=== PATIENT | male | born 1935 | race Caucasian/White ===

== ENCOUNTER 2017-01-13 08:07 | Day surgery (SDC) | payer MEDICARE, BC ==
[2017-01-13] MEDS ORDERED: LACTATED RINGERS 1,000 ML IV ONE (08:38)
[2017-01-13] MEDS ORDERED: MIDAZOLAM 2 MG/2 ML VIAL IVP ONE (09:06)
[2017-01-13] MEDS ORDERED: fentaNYL 100 MCG/2 ML VIAL IVP ONE (09:06)
[2017-01-13 10:34] VITALS: BP 104/64
== END 2017-01-13 08:08 | disposition home or self-care (01) ==
LOC: SDS 08:07
PROVIDERS: ATTEND Surgery
PROC: 0DJD8ZZ Inspection of Lower Intestinal Tract, Via Natural or Artificial Opening Endoscopic (ICD-10-PCS; principal; 2017-01-13 09:00)
DX: Z12.11 Encounter for screening for malignant neoplasm of colon (principal); R19.5 Other fecal abnormalities; K57.30 Diverticulosis of large intestine without perforation or abscess without bleeding; K64.8 Other hemorrhoids; Z86.010 Personal history of colon polyps; I10 Essential (primary) hypertension; E78.00 Pure hypercholesterolemia, unspecified; Z79.82 Long term (current) use of aspirin; Z88.0 Allergy status to penicillin
CPT/HCPCS: G0105; J7120

== ENCOUNTER 2017-12-19 19:34 | Emergency (ER) | payer MEDICARE, BC ==
[2017-12-19 19:41] VITALS: BP 149/84
[2017-12-19] MEDS: HYDROcod/ACETAM 10 MG/325 MG TABLET PO STA (20:14)
--- NOTE | 2017-12-19 20:54 | ED Physician Documentation ---
PD HPI BACK PAIN - Stated complaint Stated Complaint: BACK PX - Chief complaint Chief Complaint: Back Pain - Additional information Additional information: 82-year-old male presents the emergency department with increasing lower back pain with radiation into his right leg. The patient has a history of chronic back pain and typically experiences radiation into his left leg. The patient had a MRI recently showing multiple bulging disks. It was recommended that the patient have epidural injections but the patient declined this point. The patient has had no acute injury and has had increasing lower back pain over the past several days without relieving factors. The patient denies hematuria, saddle anesthesia, urinary retention, overflow incontinence, bowel issues, fevers or sensory or motor changes. The patient has no history of IV drug use and is not on dialysis. Symptoms are described as moderate. No other associated symptoms Review of Systems Constitutional: denies: Fever, Chills, Myalgias Cardiac: denies: Chest pain / pressure GI: reports: Nausea (The patient has had nausea with the episodes of pain). denies: Abdominal Pain : denies: Dysuria, Incontinent, Hematuria Musculoskeletal: reports: Back pain Neurologic: denies: Generalized weakness, Focal weakness, Numbness, Difficulty speaking, Headache, Head injury Immunocompromised: denies: Chemotherapy PD PAST MEDICAL HISTORY - Past Medical History Past Medical History: Yes Cardiovascular: Hypertension, High cholesterol, Other GI: GERD - Past Surgical History Past Surgical History: No General: Colonoscopy - Present Medications Home Medications: Ambulatory Orders Medication Instructions Recorded Confirmed Aspirin [Aspir 81] 1 tab PO DAILY 02/27/15 01/13/17 Diltiazem HCl [Diltiazem ER] 1 tab PO DAILY 02/27/15 01/13/17 Finasteride 1 tab PO DAILY 02/27/15 01/13/17 Lisinopril 1 tab PO DAILY 02/27/15 01/13/17 Propafenone [Rythmol] 150 mg PO TID 02/27/15 01/13/17 Simvastatin 1 tab PO DAILY 02/27/15 01/13/17 Tamsulosin [Flomax] 0.4 mg PO DAILY 01/13/17 01/13/17 Cyclobenzaprine [Flexeril] 10 mg PO TID PRN #20 tablet 12/19/17 HYDROcod/ACETAM 5/325 [Kistler 5/325] 1 each PO Q6H PRN #15 tablet 12/19/17 - Allergies Allergies/Adverse Reactions: Allergies Allergy/AdvReac Type Severity Reaction Status Date / Time Penicillins AdvReac Unknown Verified 12/19/17 19:40 - Social History Does the pt smoke?: No Smoking Status: Never smoker Does the pt drink ETOH?: No Does the pt have substance abuse?: No - Immunizations Immunizations are current?: Yes - POLST Patient has POLST: No PD ED PE NORMAL - General General: Alert and oriented X 3, No acute distress, Well developed/nourished - HEENT HEENT: Atraumatic, PERRL, EOMI, Ears normal - Cardiac Cardiac: RRR - Respiratory Respiratory: No respiratory distress - Back Back: Other (The patient is tender in the lower lumbar spine on the left side, at the L4, L5 and SI junction. There is no bogginess, crepitus, rash, erythematous changes or signs of abscess or acute infectious process identified on physical exam) - Neuro Neuro: Alert and oriented X 3, Normal speech - Psych Psych: Normal mood Results - Vitals Vitals: Vital Signs - 24 hr 12/19/17 19:38 Temperature 36.2 C L Heart Rate 53 L Respiratory 16 Rate Blood Pressure 149/84 H O2 Saturation 98 Oxygen O2 Source Room air - Labs Labs: Laboratory Tests 12/19/17 20:51 Urine Color YELLOW Urine Clarity CLEAR Urine pH 6.0 Ur Specific [place] 1.025 Urine Protein NEGATIVE Urine Glucose (UA) NEGATIVE Urine Ketones NEGATIVE Urine Occult Blood NEGATIVE Urine Nitrite NEGATIVE Urine Bilirubin NEGATIVE Urine Urobilinogen 0.2 (NORMAL) Ur Leukocyte Esterase NEGATIVE Ur Microscopic Review NOT INDICATED Urine Culture Comments NOT INDICATED - Rads (name of study) X-ray lumbar spine Radiology: Final report received, See rad report (Impression: 1. Moderate degenerative disc disease at L2 through L3 and L4 and L5 with grade 1 spondylolisthesis at L4-L5 no fracture identified) PD MEDICAL DECISION MAKING - ED course ED course: On reevaluation the patient has had some improvement in his symptoms, the patient can stand and ambulate without difficulty. The patient's symptoms seem to represent acute lumbar pain with radiculopathy. There is currently no evidence to suggest kidney stone, cauda equina or epidural abscess which would necessitate further workup in the emergency department. The patient appears appropriate for discharge and ongoing outpatient workup and management. I discussed signs for worsening and recommended returning to the emergency department immediately for worsening or any concerns per - Sepsis Event Vital Signs: Vital Signs - 24 hr 12/19/17 19:38 Temperature 36.2 C L Heart Rate 53 L Respiratory 16 Rate Blood Pressure 149/84 H O2 Saturation 98 Oxygen O2 Source Room air Departure - Departure Disposition: Home, Self Care Clinical Impression: Back pain Qualifiers: Back pain location: low back pain Chronicity: acute Back pain laterality: right Sciatica presence: with sciatica Sciatica laterality: sciatica of right side Qualified Code(s): M54.41 - Lumbago with sciatica, right side Condition: Good Instructions: Lumbar Radiculopathy Follow-Up: Nicki Neff PA-C [Primary Care Provider] - Within 3 Days (Please ask your primary care Physicians funeral assistant to arrange for outpatient physical therapy and possibly an MRI and possibly a referral to pain management) Prescriptions: Cyclobenzaprine [Flexeril] 10 mg PO TID PRN #20 tablet PRN Reason: Spasms HYDROcod/ACETAM 5/325 [Kistler 5/325] 1 each PO Q6H PRN #15 tablet PRN Reason: Pain Comments: Please return to the emergency department for worsening symptoms or any concerns
[2017-12-19 21:05] LABS: BILIRUBIN,URINE NEGATIVE (NEGATIVE); GLUCOSE, URINE (UA) NEGATIVE (NEGATIVE); KETONES,URINE (UA) NEGATIVE (NEGATIVE); LEUKOCYTE ESTERASE, URINE NEGATIVE (NEGATIVE); NITRITE,URINE NEGATIVE (NEGATIVE); OCCULT BLOOD,URINE NEGATIVE (NEGATIVE); PROTEIN,URINE NEGATIVE (NEGATIVE); UROBILINOGEN,URINE 0.2 (NORMAL) E.U./dL (NORMAL)
[2017-12-19 21:09] LABS: CLARITY,URINE CLEAR (CLEAR)
--- NOTE | 2017-12-19 21:23 | XRAY Report ---
Procedure Date: 12/19/2017 Accession Number: [id number] / [id number] Procedure: XR - Lumbar Spine Complete CPT Code: FULL RESULT: EXAM: LUMBOSACRAL SPINE RADIOGRAPHY EXAM DATE: 12/19/2017 08:50 PM. CLINICAL HISTORY: Pain. COMPARISONS: None. TECHNIQUE: 4 views. FINDINGS: Alignment: There is grade 1 spondylolisthesis at L4-L5. Bones: Five wus-fya-wuirjjc lumbar vertebral bodies are present. No spondylolysis. No compression fracture. There is moderate sclerosis at L4-L5. Disks: There is moderate disk height loss at L4-L5. There is moderate disk height loss at L2-L3. Facets: Facet joints appear in satisfactory alignment with degenerative disease present. Sacroiliac Joints: Unremarkable. Soft Tissues: Normal. The visualized bowel gas pattern is normal. IMPRESSION: 1. Moderate degenerative disk disease at L2-L3 and L4-L5 with grade 1 spondylolisthesis at L4-L5. No fracture identified. RADIA
== END 2017-12-19 22:04 | disposition home or self-care (01) ==
LOC: ED 19:34
DX: M54.41 Lumbago with sciatica, right side (principal); G89.29 Other chronic pain; I10 Essential (primary) hypertension; E78.00 Pure hypercholesterolemia, unspecified; Z79.82 Long term (current) use of aspirin
CPT/HCPCS: 72110; 81003; 99283; A9270; 81001; 87086

== ENCOUNTER 2020-05-15 10:41 | Outpatient (CLI) | payer MEDICARE, BC ==
[2020-05-15 15:54] LABS: BASOPHILS # (AUTO) 0.1 10^3/uL (0.0-0.1); BASOPHILS % (AUTO) 0.9 %; EOSINOPHILS # (AUTO) 0.2 10^3/uL (0.0-0.7); EOSINOPHILS % (AUTO) 3.6 %; LYMPHOCYTES % (AUTO) 29.7 %; MEAN CORPUSCULAR HEMOGLOBIN 31.3 pg (27.0-31.0); MEAN CORPUSCULAR HGB CONC 31.3 g/dL (32.0-36.0); MEAN PLATELET VOLUME 8.6 fL (7.4-11.4); MONOCYTES # (AUTO) 1.2 10^3/uL (0.0-1.0); MONOCYTES % (AUTO) 18.1 %; NEUTROPHILS # (AUTO) 3.2 10^3/uL (1.5-6.6); NEUTROPHILS % (AUTO) 47.6 %; PLT - PLATELET COUNT 364 10^3/uL (130-450); RED BLOOD COUNT 4.16 10^6/uL (4.70-6.10); RED CELL DISTRIBUTION WIDTH 13.6 % (12.0-15.0); WHITE BLOOD COUNT 6.7 x10^3/uL (4.8-10.8)
[2020-05-15 16:16] LABS: ALBUMIN/GLOBULIN RATIO 1.4 (1.0-2.2); ALKALINE PHOSPHATASE 95 IU/L (42-121); ALT ALANINE AMINOTRANSFERASE 27 IU/L (10-60); AST ASPARTATE AMINOTRANSFERASE 20 IU/L (10-42); BILIRUBIN,TOTAL 0.4 mg/dL (0.2-1.0); BUN - BLOOD UREA NITROGEN 29 mg/dL (6-20); CALCIUM 9.1 mg/dL (8.5-10.3); CARBON DIOXIDE - CO2 25 mmol/L (21-32); CHLORIDE 109 mmol/L (101-111); CHOL/HDL RATIO 2.6 (<5.0); CHOLESTEROL 136 mg/dL; GLUCOSE 90 mg/dL (70-100); HDL CHOLESTEROL 52 mg/dL; LDL CHOLESTEROL,CALCULATED 75 mg/dL; LDL/HDL RATIO 1.4 (<3.6); SODIUM 143 mmol/L (135-145); TOTAL PROTEIN 6.8 g/dL (6.7-8.2); VLDL CHOLESTEROL 9 mg/dL
== END 2020-05-15 10:42 | disposition home or self-care (01) ==
LOC: LAB.S 10:41
PROVIDERS: ATTEND Registered Nurse
DX: I47.1 Supraventricular tachycardia (principal); E78.00 Pure hypercholesterolemia, unspecified; I10 Essential (primary) hypertension
CPT/HCPCS: 36415; 80053; 80061; 83721; 84443; 85025

== ENCOUNTER 2020-08-02 13:22 | Outpatient (CLI) | payer MEDICARE, BC ==
[2020-08-02 14:40] LABS: BASOPHILS % (AUTO) 0.6 %; EOSINOPHILS # (AUTO) 0.2 10^3/uL (0.0-0.7); EOSINOPHILS % (AUTO) 3.2 %; HGB - HEMOGLOBIN 13.5 g/dL (14.0-18.0); LYMPHOCYTES # (AUTO) 1.9 10^3/uL (1.5-3.5); LYMPHOCYTES % (AUTO) 29.9 %; MEAN CORPUSCULAR HEMOGLOBIN 31.1 pg (27.0-31.0); MEAN CORPUSCULAR HGB CONC 32.1 g/dL (32.0-36.0); MEAN CORPUSCULAR VOLUME 96.8 fL (80.0-94.0); MEAN PLATELET VOLUME 8.7 fL (7.4-11.4); MONOCYTES # (AUTO) 0.9 10^3/uL (0.0-1.0); NEUTROPHILS # (AUTO) 3.4 10^3/uL (1.5-6.6); NEUTROPHILS % (AUTO) 52.1 %; PLT - PLATELET COUNT 300 10^3/uL (130-450); RED BLOOD COUNT 4.34 10^6/uL (4.70-6.10); RED CELL DISTRIBUTION WIDTH 13.3 % (12.0-15.0); WHITE BLOOD COUNT 6.5 x10^3/uL (4.8-10.8)
== END 2020-08-02 13:23 | disposition home or self-care (01) ==
LOC: LAB.S 13:22
PROVIDERS: ATTEND Registered Nurse
DX: N40.1 Benign prostatic hyperplasia with lower urinary tract symptoms (principal); E29.1 Testicular hypofunction; E78.00 Pure hypercholesterolemia, unspecified; I10 Essential (primary) hypertension
CPT/HCPCS: 36415; 84153; 84403; 85025

== ENCOUNTER 2021-07-25 11:23 | Outpatient (CLI) | payer MEDICARE, BC ==
[2021-07-25 14:45] LABS: BASOPHILS # (AUTO) 0.1 10^3/uL (0.0-0.1); BASOPHILS % (AUTO) 0.8 %; EOSINOPHILS # (AUTO) 0.2 10^3/uL (0.0-0.7); EOSINOPHILS % (AUTO) 2.5 %; HCT - HEMATOCRIT 42.5 % (42.0-52.0); HGB - HEMOGLOBIN 13.8 g/dL (14.0-18.0); LYMPHOCYTES % (AUTO) 28.3 %; MEAN CORPUSCULAR HGB CONC 32.5 g/dL (32.0-36.0); MEAN CORPUSCULAR VOLUME 95.5 fL (80.0-94.0); MEAN PLATELET VOLUME 8.7 fL (7.4-11.4); MONOCYTES # (AUTO) 1.1 10^3/uL (0.0-1.0); MONOCYTES % (AUTO) 15.3 %; NEUTROPHILS # (AUTO) 3.8 10^3/uL (1.5-6.6); NEUTROPHILS % (AUTO) 52.8 %; PLT - PLATELET COUNT 353 10^3/uL (130-450); RED BLOOD COUNT 4.45 10^6/uL (4.70-6.10); RED CELL DISTRIBUTION WIDTH 13.8 % (12.0-15.0); WHITE BLOOD COUNT 7.2 x10^3/uL (4.8-10.8)
[2021-07-25 15:13] LABS: ALBUMIN 3.9 g/dL (3.2-5.5); ALBUMIN/GLOBULIN RATIO 1.3 (1.0-2.2); ALKALINE PHOSPHATASE 93 IU/L (42-121); ALT ALANINE AMINOTRANSFERASE 21 IU/L (10-60); AST ASPARTATE AMINOTRANSFERASE 15 IU/L (10-42); BILIRUBIN,TOTAL 0.6 mg/dL (0.2-1.0); BUN - BLOOD UREA NITROGEN 28 mg/dL (6-20); CALCIUM 9.2 mg/dL (8.5-10.3); CARBON DIOXIDE - CO2 25 mmol/L (21-32); CHLORIDE 106 mmol/L (101-111); CHOL/HDL RATIO 2.4 (<5.0); CHOLESTEROL 149 mg/dL; GFR - MDRD 71 (>89); GLUCOSE 106 mg/dL (70-100); HDL CHOLESTEROL 61 mg/dL; LDL CHOLESTEROL,CALCULATED 80 mg/dL; LDL/HDL RATIO 1.3 (<3.6); POTASSIUM 4.1 mmol/L (3.5-5.0); SODIUM 139 mmol/L (135-145); TOTAL PROTEIN 6.8 g/dL (6.7-8.2); TRIGLYCERIDES 41 mg/dL; VLDL CHOLESTEROL 8 mg/dL
[2021-07-25 15:28] LABS: THYROID STIMULATING HORMONE 1.6 uIU/mL (0.34-5.60)
== END 2021-07-25 11:24 | disposition home or self-care (01) ==
LOC: LAB.S 11:23
PROVIDERS: ATTEND Registered Nurse
DX: I47.1 Supraventricular tachycardia (principal); E78.00 Pure hypercholesterolemia, unspecified; I10 Essential (primary) hypertension; K57.90 Diverticulosis of intestine, part unspecified, without perforation or abscess without bleeding
CPT/HCPCS: 36415; 80053; 80061; 83721; 84443; 85025

== ENCOUNTER 2021-08-29 08:00 | Outpatient (CLI) | payer MEDICARE, BC ==
--- NOTE | 2021-08-29 12:00 | XRAY Report ---
PROCEDURE: Hips 2V BILAT INDICATIONS: LEFT SCIATICA/LEFT HIP PAIN TECHNIQUE: 2 views of the right hip and left hip were acquired. COMPARISON: None FINDINGS: Bones: No fractures or dislocations. No suspicious bony lesions. The visualized pelvic ring appear s intact. Moderate right hip osteoarthritis with osseous hypertrophy and joint space narrowing. Mild- to-moderate left hip osteoarthritis with osseous hypertrophy and slight joint space narrowing. Degene rative changes noted lower lumbar spine. Soft tissues: No suspicious soft tissue calcifications or masses. IMPRESSION: Moderate right hip and ikit-vw-iayzogwv left hip osteoarthritis. Reviewed by: Nancy Dewitt MD, PhD on 08/29/2021 11:59 AM PDT Approved by: Nancy Dewitt MD, PhD on 08/29/2021 11:59 AM PDT Station ID: [id number]
== END 2021-08-29 23:59 | disposition home or self-care (01) ==
LOC: DI.S 08:00
PROVIDERS: ATTEND Registered Nurse
DX: M16.12 Unilateral primary osteoarthritis, left hip (principal)

== ENCOUNTER 2022-03-22 08:00 | Outpatient (CLI) | payer MEDICARE, BC ==
--- NOTE | 2022-03-22 13:17 | XRAY Report ---
PROCEDURE: Lumbar Spine 2 View INDICATIONS: LUMBAGO WITH SCIATICA TECHNIQUE: 2 views of the lumbar spine were acquired. COMPARISON: 12/19/2017 FINDINGS: Bones: 5 [id number]-rmd-kduvyni vertebrae are present. Grade 1 anterolisthesis L4-5 and trace anterolisthes is L5-S1 multilevel and asymmetric disc height loss resulting in slight scoliosis and mild lateral en dplate spurring. No vertebral body compression fractures. No suspicious bony lesions. Bilateral hi p joint degeneration, right worse than left. Soft tissues: Overlying bowel gas pattern is normal. No suspicious soft tissue calcifications. IMPRESSION: 1. Multilevel degenerative disc and endplate changes. 2. Mild lower lumbar anterolisthesis without significant change since 2018. Reviewed by: Rylee Bryan MD on 03/22/2022 12:15 PM ALICIA Approved by: Rylee Bryan MD on 03/22/2022 12:15 PM ALICIA Station ID: [id number]
== END 2022-03-22 23:59 | disposition home or self-care (01) ==
LOC: DI.S 08:00
PROVIDERS: ATTEND Physician Assistant
DX: M43.16 Spondylolisthesis, lumbar region (principal); M43.17 Spondylolisthesis, lumbosacral region; M51.17 Intervertebral disc disorders with radiculopathy, lumbosacral region

== ENCOUNTER 2022-04-06 08:02 | Emergency (ER) | payer MEDICARE, BC ==
[2022-04-06 08:09] VITALS: BP 182/86
[2022-04-06] MEDS ORDERED: predniSONE 20 MG TABLET PO STA (08:32)
--- NOTE | 2022-04-06 08:35 | ED Physician Documentation ---
History of Present Illness - Stated complaint Stated Complaint: BACK PX - Chief complaint Chief Complaint: Back Pain - Additonal information Additional information: Patient 86-year-old male with past medical significant for chronic back pain presenting with chief complaint of back pain. Endorses for right-sided back pain with right-sided associated sciatica. States symptoms been ongoing for 4 weeks. Initially seen at urgent care. Reports multilevel disc disease. Symptoms improved after short course of prednisone. He is also been using ibuprofen and Penfield at home for pain control. Denies fever, chills, weight loss, night sweats, saddle paresthesias, loss of bowel bladder control. Review of Systems Ten Systems: 10 systems reviewed and negative Constitutional: denies: Fever Eyes: denies: Loss of vision Ears: denies: Loss of hearing Nose: denies: Rhinorrhea / runny nose Throat: denies: Dental pain / toothache Cardiac: denies: Chest pain / pressure Respiratory: denies: Dyspnea GI: denies: Abdominal Pain : denies: Dysuria Skin: denies: Rash Musculoskeletal: reports: Back pain Neurologic: denies: Generalized weakness PD PAST MEDICAL HISTORY - Past Medical History Cardiovascular: Hypertension, High cholesterol, Other GI: GERD - Past Surgical History Past Surgical History: No General: Colonoscopy - Present Medications Home Medications: Ambulatory Orders Medication Instructions Recorded Confirmed Aspirin [Aspir 81] 1 tab PO DAILY 02/27/15 01/13/17 Finasteride 1 tab PO DAILY 02/27/15 01/13/17 Propafenone [Rythmol] 150 mg PO TID 02/27/15 01/13/17 Simvastatin 1 tab PO DAILY 02/27/15 01/13/17 dilTIAZem HCl [Diltiazem ER] 1 tab PO DAILY 02/27/15 01/13/17 lisinopriL [Lisinopril] 1 tab PO DAILY 02/27/15 01/13/17 Tamsulosin [Flomax] 0.4 mg PO DAILY 01/13/17 01/13/17 Cyclobenzaprine [Flexeril] 10 mg PO TID PRN #20 tablet 12/19/17 HYDROcod/ACETAM 5/325 [Penfield 5/325] 1 each PO Q6H PRN #15 tablet 12/19/17 HYDROcod/ACETAM 5/325 [[place]field 5/325] 1 - 2 ea PO Q6H PRN #14 tablet 04/06/22 Lidocaine Patch 5% [Lidoderm Patch] 1 patch TOP DAILY PRN #10 patch 04/06/22 predniSONE [Deltasone] 40 mg PO DAILY #10 tablet 04/06/22 - Allergies Allergies/Adverse Reactions: Allergies Allergy/AdvReac Type Severity Reaction Status Date / Time Penicillins AdvReac Unknown Verified 04/06/22 08:09 - Social History Does the pt smoke?: No Smoking Status: Never smoker Does the pt drink ETOH?: No Does the pt have substance abuse?: No - Immunizations Immunizations are current?: Yes - POLST Patient has POLST: No PD ED PE NORMAL - Vitals Vital signs reviewed: Yes - General General: Alert and oriented X 3, No acute distress - HEENT HEENT: Atraumatic, PERRL - Neck Neck: Supple, no meningeal sign - Cardiac Cardiac: RRR - Respiratory Respiratory: No respiratory distress - Male Male : Deferred - Rectal Rectal: Deferred - Back Back: No spinal TTP, Other (Right-sided para Spinal muscle tenderness to palpation.) - Derm Derm: Normal color Results - Vitals Vitals: Vital Signs - 24 hr 04/06/22 08:06 Temperature 36.1 C L Heart Rate 72 Respiratory 20 Rate Blood Pressure 182/86 H O2 Saturation 96 Oxygen O2 Source Room air PD MEDICAL DECISION MAKING - ED course Complexity details: d/w patient ED course: Patient 86-year-old male presenting with acute on chronic back pain. Symptoms ongoing x4 weeks. No symptoms of spinal cord compression, fever. He denied weight loss or night sweats that would be of concern for underlying malignancy. He reported recent imaging demonstrating multilevel lumbar disc degeneration. No focal or lateralizing neurologic deficit on exam. No focal tenderness to the spine although he did have notable paraspinal muscle tenderness to palpation on the right low back. Did report that he does takeIbuprofen and in the past has taken Penfield which has helped with pain relief.Also reported taking a 5-day course of prednisone 2 weeks ago which he states helped his pain a great deal.Will discharge on short course prednisone, Lidoderm with encouragement to continue to use acetaminophen and ibuprofen as appropriate. Additionally will write a short course of Penfield for breakthrough pain. Will encourage careful follow-up with primary care. Detailed return precautions given prior to discharge. Departure - Departure Disposition: 01 Home, Self Care Clinical Impression: Sciatica, Back pain Instructions: IBUPROFEN (Adult), NARCOTIC, Oral, ED Sciatica Prescriptions: predniSONE [Deltasone] 40 mg PO DAILY #10 tablet Lidocaine Patch 5% [Lidoderm Patch] 1 patch TOP DAILY PRN #10 patch PRN Reason: pain HYDROcod/ACETAM 5/325 [Penfield 5/325] 1 - 2 ea PO Q6H PRN #14 tablet PRN Reason: Pain Comments: Thank you for allowing us to care for you today [facility]. Please fill your prescriptions as soon as possible. Please be aware that one of the medications prescribed, Penfield, is a strong narcotic pain medication. It can cause sedation. It should not be used if you are operating a motor vehicle, using of machinery or you are the sole hosiery operator of young children. Please make a follow-up appoint with your primary care doctor soon as possible for medical recheck. If it anytime you develop new or worsening symptoms such as worsening pain, fever, numbness or tingling around the anus or genitalia or loss of bowel or bladder control please return to the emergency department immediately for further evaluation and treatment.
== END 2022-04-06 09:09 | disposition home or self-care (01) ==
LOC: ED 08:02
DX: M54.41 Lumbago with sciatica, right side (principal); G89.29 Other chronic pain; I10 Essential (primary) hypertension
CPT/HCPCS: 99283; 99284; J7512

== ENCOUNTER 2022-08-12 10:34 | Outpatient (CLI) | payer MEDICARE, BC ==
[2022-08-12 14:43] LABS: BASOPHILS # (AUTO) 0.1 10^3/uL (0.0-0.1); BASOPHILS % (AUTO) 0.6 %; EOSINOPHILS # (AUTO) 0.2 10^3/uL (0.0-0.7); EOSINOPHILS % (AUTO) 2.3 %; HCT - HEMATOCRIT 43.4 % (42.0-52.0); HGB - HEMOGLOBIN 13.8 g/dL (14.0-18.0); LYMPHOCYTES # (AUTO) 2.2 10^3/uL (1.5-3.5); LYMPHOCYTES % (AUTO) 28.3 %; MEAN CORPUSCULAR HEMOGLOBIN 31.2 pg (27.0-31.0); MEAN CORPUSCULAR HGB CONC 31.8 g/dL (32.0-36.0); MEAN CORPUSCULAR VOLUME 98.2 fL (80.0-94.0); MEAN PLATELET VOLUME 8.6 fL (7.4-11.4); MONOCYTES # (AUTO) 1.1 10^3/uL (0.0-1.0); MONOCYTES % (AUTO) 14.5 %; NEUTROPHILS # (AUTO) 4.2 10^3/uL (1.5-6.6); NEUTROPHILS % (AUTO) 53.9 %; PLT - PLATELET COUNT 359 10^3/uL (130-450); RED BLOOD COUNT 4.42 10^6/uL (4.70-6.10); RED CELL DISTRIBUTION WIDTH 13.2 % (12.0-15.0); WHITE BLOOD COUNT 7.8 x10^3/uL (4.8-10.8)
[2022-08-12 15:38] LABS: ALBUMIN 3.7 g/dL (3.2-5.5); ALBUMIN/GLOBULIN RATIO 1.2 (1.0-2.2); ALKALINE PHOSPHATASE 96 IU/L (42-121); ALT ALANINE AMINOTRANSFERASE 22 IU/L (10-60); AST ASPARTATE AMINOTRANSFERASE 16 IU/L (10-42); BILIRUBIN,TOTAL 0.5 mg/dL (0.2-1.0); BUN - BLOOD UREA NITROGEN 29 mg/dL (6-20); CARBON DIOXIDE - CO2 27 mmol/L (21-32); CHLORIDE 107 mmol/L (101-111); CHOL/HDL RATIO 2.9 (<5.0); CHOLESTEROL 143 mg/dL; GFR - MDRD 71 (>89); GLUCOSE 113 mg/dL (70-100); HDL CHOLESTEROL 49 mg/dL; LDL CHOLESTEROL,CALCULATED 83 mg/dL; LDL/HDL RATIO 1.7 (<3.6); POTASSIUM 4.4 mmol/L (3.5-5.0); SODIUM 141 mmol/L (135-145); TOTAL PROTEIN 6.7 g/dL (6.7-8.2); TRIGLYCERIDES 53 mg/dL; VLDL CHOLESTEROL 11 mg/dL
== END 2022-08-12 10:35 | disposition home or self-care (01) ==
LOC: LAB.S 10:34
PROVIDERS: ATTEND Registered Nurse
DX: E78.5 Hyperlipidemia, unspecified (principal); Z79.899 Other long term (current) drug therapy; N40.1 Benign prostatic hyperplasia with lower urinary tract symptoms
CPT/HCPCS: 36415; 80053; 80061; 83721; 84153; 84403; 85025

== ENCOUNTER 2022-10-06 11:16 | Outpatient (CLI) | payer MEDICARE, BC ==
--- NOTE | 2022-10-06 15:50 | XRAY Report ---
PROCEDURE: Ankle 3 View LT INDICATIONS: AKNLE JOINT PAIN TECHNIQUE: 3 views of the ankle were acquired. COMPARISON: None. FINDINGS: Deformity of the ankle is present, suspect remote post traumatic and/or sequela of severe degenerativ e disease. There is medial talar tilt and severe tibiotalar joint space loss. Deformity of the fibula appears remote. No definite acute displaced fracture identified. Possible remote posttraumatic defor mity of the talar dome also present. Vascular calcifications are present. 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 No definite acute fracture identified, however one is difficult to exclude given the deformity of the ankle. If symptoms persist, follow-up radiographs and/or CT or MRI may be helpful for further evaluation. Reviewed by: Juvenal Hu MD on 10/06/2022 3:48 PM PDT Approved by: Juvenal Hu MD on 10/06/2022 3:48 PM PDT Station ID: [id number]
== END 2022-10-06 11:17 | disposition home or self-care (01) ==
LOC: DI.S 11:16
PROVIDERS: ATTEND Registered Nurse
DX: M19.072 Primary osteoarthritis, left ankle and foot (principal)

== ENCOUNTER 2022-10-28 08:00 | Outpatient (CLI) | payer MEDICARE, BC ==
--- NOTE | 2022-10-28 16:52 | XRAY Report ---
PROCEDURE: Ankle 3 View LT INDICATIONS: LEFT ANKLE PAIN, BILAT OBL VIEW FOR COMPARRISON, LEFT THOMAS VIEW TECHNIQUE: 3 views of the ankle were acquired. COMPARISON: X-ray ankle 10/06/2022 FINDINGS: Bones: No fractures or dislocations. Ankle mortise is normally aligned. No suspicious bony lesions . Arthritic changes are present at the tibiotalar joint space bilaterally. There is deformity of th e distal fibula on the left suspected to be related to prior trauma. Soft tissues: No tibiotalar joint effusion. Achilles tendon appears normal. IMPRESSION: Tibiotalar arthritic changes bilaterally. No visualized acute fracture or dislocation. However, occul t injury cannot be excluded. Recommend short interval imaging follow-up in 7-10 days as clinically in dicated for additional evaluation. Reviewed by: Sayra Greene MD on 10/28/2022 4:51 PM PDT Approved by: Sayra Greene MD on 10/28/2022 4:51 PM PDT Station ID: [id number]
== END 2022-10-28 23:59 | disposition home or self-care (01) ==
LOC: DI.WOS 08:00
PROVIDERS: ATTEND Orthopaedic Surgery
DX: M19.072 Primary osteoarthritis, left ankle and foot (principal)

== ENCOUNTER 2023-10-15 09:06 | Outpatient (CLI) | payer MEDICARE, BC ==
[2023-10-15 15:26] LABS: BASOPHILS % (AUTO) 0.5 %; EOSINOPHILS # (AUTO) 0.2 10^3/uL (0.0-0.7); EOSINOPHILS % (AUTO) 2.7 %; HCT - HEMATOCRIT 41.5 % (42.0-52.0); HGB - HEMOGLOBIN 13.2 g/dL (14.0-18.0); LYMPHOCYTES # (AUTO) 2.5 10^3/uL (1.5-3.5); LYMPHOCYTES % (AUTO) 33.6 %; MEAN CORPUSCULAR HEMOGLOBIN 30.7 pg (27.0-31.0); MEAN CORPUSCULAR HGB CONC 31.8 g/dL (32.0-36.0); MEAN CORPUSCULAR VOLUME 96.5 fL (80.0-94.0); MEAN PLATELET VOLUME 8.7 fL (7.4-11.4); MONOCYTES # (AUTO) 1.1 10^3/uL (0.0-1.0); NEUTROPHILS # (AUTO) 3.7 10^3/uL (1.5-6.6); NEUTROPHILS % (AUTO) 49.1 %; PLT - PLATELET COUNT 366 10^3/uL (130-450); RED CELL DISTRIBUTION WIDTH 14.1 % (12.0-15.0); WHITE BLOOD COUNT 7.5 x10^3/uL (4.8-10.8)
[2023-10-15 15:32] LABS: ALBUMIN/GLOBULIN RATIO 1.6 (1.0-2.2); ALKALINE PHOSPHATASE 110 IU/L (42-121); ALT ALANINE AMINOTRANSFERASE 15 IU/L (10-60); AST ASPARTATE AMINOTRANSFERASE 13 IU/L (10-42); BILIRUBIN,TOTAL 0.4 mg/dL (0.2-1.0); BUN - BLOOD UREA NITROGEN 24 mg/dL (6-20); CALCIUM 9.4 mg/dL (8.5-10.3); CARBON DIOXIDE - CO2 25 mmol/L (21-32); CHLORIDE 109 mmol/L (101-111); CHOL/HDL RATIO 2.4 (<5.0); CHOLESTEROL 108 mg/dL; CREATININE 0.9 mg/dL (0.6-1.3); GFR - MDRD 80 (>89); GLUCOSE 94 mg/dL (74-104); HDL CHOLESTEROL 45 mg/dL; LDL CHOLESTEROL,CALCULATED 53 mg/dL; LDL/HDL RATIO 1.2 (<3.6); POTASSIUM 4.1 mmol/L (3.5-4.5); SODIUM 142 mmol/L (135-145); TOTAL PROTEIN 6.5 g/dL (6.4-8.9); TRIGLYCERIDES 48 mg/dL (48-352); VLDL CHOLESTEROL 10 mg/dL
[2023-10-15 15:49] LABS: THYROID STIMULATING HORMONE 1.55 uIU/mL (0.34-5.60)
== END 2023-10-15 09:07 | disposition home or self-care (01) ==
LOC: LAB.S 09:06
PROVIDERS: ATTEND Registered Nurse
DX: Z12.5 Encounter for screening for malignant neoplasm of prostate (principal); Z13.228 Encounter for screening for other metabolic disorders; Z13.220 Encounter for screening for lipoid disorders; Z13.29 Encounter for screening for other suspected endocrine disorder; Z13.0 Encounter for screening for diseases of the blood and blood-forming organs and certain disorders involving the immune mechanism; I10 Essential (primary) hypertension
CPT/HCPCS: 36415; 80053; 80061; 84443; 85025; G0103; 83721; 84153